=== PATIENT | male | born 1955 | race Caucasian/White ===

== ENCOUNTER 2017-08-09 07:00 | Emergency (ER) | payer OTHER ==
[~2017-08-09] VITALS: Ht 170.2 cm; Wt 90.7 kg
[2017-08-09 07:04] VITALS: BP 141/87
--- NOTE | 2017-08-09 07:38 | NUR ---
patient is homeless and requests refill of ventolin INH medication and c/o SOB. he appears agitated and states he has anxeity. his breath sounds are diminished throughout. put on O2 via NC at 2lpm. pursed-lip breathing encouraged. MD notified. continue to monitor.
[2017-08-09 08:10] VITALS: BP 149/96
--- NOTE | 2017-08-09 08:11 | NUR ---
Patient discharged with decreased SOB. Able to maintain adequate ventilation without oxygen assistance. Written and verbal after care instructions given and explained. Patient alert, oriented and verbalized understanding of instructions. Wheel Chair Assisted self to car. All questions addressed prior to discharge. ID band removed. Patient advised to follow up with PMD. Rx of ALBUTEROL, PREDNISONE, AND FLUOXETINE given. Patient educated on indication of medication including possible reaction and side effects. Opportunity to ask questions provided and answered.
== END 2017-08-09 08:11 | disposition home or self-care (01) ==
LOC: MED 07:00
DX: Z76.0 Encounter for issue of repeat prescription (principal); J44.9 Chronic obstructive pulmonary disease, unspecified; E11.9 Type 2 diabetes mellitus without complications; I10 Essential (primary) hypertension; Z88.1 Allergy status to other antibiotic agents; Z88.8 Allergy status to other drugs, medicaments and biological substances; Z87.891 Personal history of nicotine dependence
CPT/HCPCS: 99283

== ENCOUNTER 2017-11-09 01:53 | Inpatient (IN) | payer OTHER ==
[~2017-11-09] VITALS: Ht 167.6 cm; Wt 69.9 kg
[2017-11-09 02:01] VITALS: BP 110/45
--- NOTE | 2017-11-09 02:01 | NUR ---
62Y/M BIBA FROM STREET C/O OF PENIS SWELLING AND PAIN, NO TRAUMA. PATIENT STATES PAIN OF 10/10 AT THIS TIME; PATIENT POSITIONED FOR COMFORT; HOB ELEVATED; BEDRAILS UP X2; BED DOWN. ER MD MADE AWARE OF PT STATUS.
[2017-11-09] MEDS ORDERED: NACL 0.9% 1,000 ML IV ONE (02:05)
--- NOTE | 2017-11-09 02:14 | NUR ---
X-RAY AT BEDSIDE
--- NOTE | 2017-11-09 02:20 | NUR ---
PT REFUSE IV INSERTION AND IV MEDS
--- NOTE | 2017-11-09 03:11 | NUR ---
Note jose alberto in EDM - 11/09/17 at 0317 by RON Patient discharged with v/s stable. Written and verbal after care instructions given and explained. Patient alert, oriented and verbalized understanding of instructions. Ambulatory with steady gait. All questions addressed prior to discharge. ID band removed. Patient advised to follow up with PMD. Rx of OMEPRAZOLE given. Patient educated on indication of medication including possible reaction and side effects. Opportunity to ask questions provided and answered.
[2017-11-09 03:13] LABS: BASOPHILS # (AUTO) 0.1 K/uL (0.00-0.22); BASOPHILS % (AUTO) 1.9 % (0.0-2.0); EOSINOPHILS # (AUTO) 0.1 K/uL (0-0.4); EOSINOPHILS % (AUTO) 1.2 % (0.0-4.0); HEMATOCRIT 32.7 % (36-52); HEMOGLOBIN 10.3 g/dL (12.0-18.0); LYMPHOCYTES # (AUTO) 2.4 K/uL (2.0-11.5); LYMPHOCYTES % (AUTO) 34.4 % (20.5-51.1); MEAN CORPUSCULAR HEMOGLOBIN 29 pg (27-31); MEAN CORPUSCULAR HGB CONC 32 g/dL (33-37); MEAN CORPUSCULAR VOLUME 92.6 fL (80-94); MONOCYTES # (AUTO) 0.4 K/uL (0.8-1.0); MONOCYTES % (AUTO) 5.5 % (1.7-9.3); NEUTROPHILS # (AUTO) 4.1 K/uL (1.8-7.7); PLATELET COUNT (AUTO) 282 K/uL (140-450); RED BLOOD CELL COUNT(AUTO) 3.53 MIL/uL (4.20-6.10); WHITE BLOOD COUNT (AUTO) 7.1 K/uL (4.8-10.8)
[2017-11-09] MEDS ORDERED: KETAMINE 500 MG/5 ML VIAL IM ONE (03:20)
[2017-11-09] MEDS ORDERED: MIDAZOLAM 2 MG/2 ML VIAL IM ONE (03:20)
[2017-11-09 03:26] LABS: ANION GAP 14.2 (8-16); CARBON DIOXIDE 27.8 mmol/L (21-32); CREATININE 1.4 mg/dL (0.7-1.3)
[2017-11-09 03:29] LABS: PROTHROMBIN TIME 17.1 secs (10.8-13.4)
[2017-11-09 03:36] LABS: ACETAMINOPHEN < 0.5 ug/ml (10-30); SALICYLATE < 2.8 mg/dL (2.8-20.0)
[2017-11-09 03:40] LABS: ALBUMIN 2.7 g/dL (3.4-5.0); TOTAL BILIRUBIN 0.8 mg/dL (0.0-1.0)
[2017-11-09 03:43] LABS: APPEARANCE,URINE CLEAR (CLEAR); BILIRUBIN,URINE NEGATIVE (NEGATIVE); BLOOD, URINE NEGATIVE (NEGATIVE); COLOR,URINE YELLOW (YELLOW); LEUKOCYTE ESTERASE ,URINE NEGATIVE (NEGATIVE); NITRITE, URINE NEGATIVE (NEGATIVE); UGLUCOSE NEGATIVE (NEGATIVE)
[2017-11-09 03:51] LABS: BARBITURATE, URINE NEG. ng/ml (NEG <=200); BENZODIAZEPINE, URINE NEG. ng/mL (NEG <=200); CANNABINOID, URINE NEG. ng/mL (NEG <=50); COCAINE, URINE POS. ng/mL (NEG <=300); OPIATE, URINE POS. ng/mL (NEG <=2000); PHENCYCLIDINE SCREEN,URINE NEG. ng/mL (NEG <=25)
[2017-11-09 03:52] LABS: RBC,URINE 0-5 (RARE) /HPF (0-5)
[2017-11-09 03:53] LABS: HYALINE CASTS, URINE 0-5 /LPF (None Seen)
[2017-11-09] MEDS ORDERED: FUROSEMIDE 40 MG TAB PO ONE (04:05)
--- NOTE | 2017-11-09 04:39 | NUR ---
Patient appears to be resting comfortably in bed. Respirations even and unlabored.
[2017-11-09] MEDS ORDERED: ACETAMINOPHEN 325 MG TAB PO PRN (05:40)
[2017-11-09] MEDS ORDERED: ONDANSETRON 4 MG/2 ML VIAL IVP PRN (05:40)
--- NOTE | 2017-11-09 07:05 | NUR ---
Patient will be admitted to care of DR. Briggs. Admited to ICU. Will go to room 1. Belongings list completed. Report to TOM PRETTY.
--- NOTE | 2017-11-09 07:20 | NUR ---
ADMITTED PT FROM ER BY AIYNAA, KRISTEN AWAKE, ALERT. MILD DISTRESS, OBESE. ON O2 NC 2L/MIN, NO S/S OF RESPIRATORY DISTRESS NOTED. PT ABD SOFT, ABLE TO MOVE HIS EXTREMITIES . 3+ PRETIBIAL PITTING EDEMA TO LOWER EXTREMITIES, SKIN IS WEEPING SEROSANGUINEOUS FLUIDS RESULT OF EDEMA.MARS CATH IN PLACE WITH CLEAR YELLOW URINE. PT STATED NO DRUG ABUSE BUT URINE TEST SHOWS URINE OPIATES AND UR AMPHETAMINES POSITIVE. HOB ELEVATED WITH 30 DEGREES WITH LOW BED POSITION, CALL LIGHT IN REACH, WILL CONTINUE TO MONITOR.
[2017-11-09 08:00] VITALS: BP 113/79
[2017-11-09 08:20] LABS: CHOL/HDL RATIO 8.1 (1-4.5); FREE T4 (FREE THYROXINE) 1.25 ng/dL (0.76-1.46); MAGNESIUM 2.1 mg/dL (1.8-2.4); THYROID STIMULATING HORMONE 5.25 uIU/mL (0.34-3.74)
--- NOTE | 2017-11-09 09:48 | NUR ---
PILE DRIVING SETTER AT BEDSIDE
[2017-11-09] MEDS: DOCUSATE SODIUM 100 MG GELCAP PO SCH ×2 (10:05→20:23)
--- NOTE | 2017-11-09 10:06 | NUR ---
PT C/O LEG PAIN AT THE SCALE OF 6/10, NORCO GIVEN.
[2017-11-09] MEDS: HYDROcodone/APAP 7.5/325 MG 1 TAB PO PRN ×3 (10:07→23:39)
[2017-11-09] MEDS ORDERED: PROBIOTIC SCREEN 1 EA MISC MC PRN (11:00)
--- NOTE | 2017-11-09 11:22 | NUR ---
PICC LINE NURSE CALLED IN, UPDATED PT'S CONDITION, PER PICC LINE NURSE, SHE WILL BE HERE BY 3PM
[2017-11-09] MEDS ORDERED: CHLORHEXADINE GLUC 2% CLOTH TP SCH ×2 (11:55→16:00)
[2017-11-09] MEDS ORDERED: MUPIROCIN 2% OINT 22 GM TUBE TP SCH ×2 (11:55→16:00)
[2017-11-09 12:00] VITALS: BP 108/80
--- NOTE | 2017-11-09 12:09 | NUR ---
PT SLEEPING AT THIS TIME. NO S/S OF RESPIRATORY DISTRESS NOTED.
--- NOTE | 2017-11-09 14:45 | NUR ---
PICC LINE NURSE PRESENT TO BEDSIDE, LAB REPORT SHOWED TO PICC LINE NURSE.
--- NOTE | 2017-11-09 15:25 | NUR ---
PICC LINE INSERTION DONE, X-RAY AT BEDSIDE.
[2017-11-09 16:00] VITALS: BP 89/50
--- NOTE | 2017-11-09 16:00 | NUR ---
BED BATH GIVEN, LINEN CHANGED, GOWN CHANGED. PT RESTING IN BED AND WATCHING TV AT THIS TIME.
[2017-11-09] MEDS ORDERED: DEXTROSE 50% 50 ML SYR IVP PRN (16:50)
--- NOTE | 2017-11-09 17:30 | NUR ---
DINNER TRAY SERVED. PT ATE MAJORITY OF THE FOOD.
[2017-11-09] MEDS: CLINDAMYCIN 600 MG in DEXTROSE 5% 50 ML IV SCH ×2 (17:31→23:10)
[2017-11-09] MEDS: NACL 0.9% 1,000 ML IV SCH (17:31)
--- NOTE | 2017-11-09 19:30 | NUR ---
US AT BED SIDE AT THIS TIME.
--- NOTE | 2017-11-09 19:45 | NUR ---
PT ASLEEP AND AROUSABLE WITH TACTILE STIMULI, BUT LETHARGIC. PERRL. BILATERAL LUNGS SOUND CLEAR. RR EVEN AND UNLABORED. BOWEL SOUND ACTIVE. PICC LINE WITH DOUBLE LUMEN TO RIGHT UPPER ARM NOTED. PATENT AND ASYMPTOMATIC. GENERALIZED EDEMA NOTED TO UPPER AND LOWER EXTREMITIES, PENIS, AND SCROTUM. BILATERAL LOWER EXTREMITIES WITH SHINY AND RED IN COLOR OOZING FLUID FROM SKIN. DELAYED CAP REFILLS. AFEBRILE. NO S/SX OF PAIN. SINUS TACHYCARDIA ON CONTINUOUS BAKER OPERATOR AUTOMATIC. CALL LIGHT IN REACH. BED KEPT TO THE LOWEST POSITION. HOB ELEVATED TO 30 DEGREES. WILL CONTINUE TO MONITOR.
[2017-11-09 20:00] VITALS: BP 92/53
[2017-11-09] MEDS: FUROSEMIDE 40 MG/4 ML VIAL IVP SCH (20:20)
[2017-11-09] MEDS: BLOOD GLUCOSE MONITORING 1 DEV DEV FS SCH (20:22)
--- NOTE | 2017-11-09 20:24 | NUR ---
SCHEDULED MEDS ADMINISTERED ORDERED. PT IN DEEP SLEEP BUT ABLE TO BE AWAKE AND TOLERATED PO MED WELL. WILL CONTINUE TO MONITOR.
--- NOTE | 2017-11-09 20:41 | NUR ---
PT WAS NOT ABLE TO FIT IN THE CT SCAN MACHINE. DR. SAN MADE AWARE.
[2017-11-09] MEDS: INSULIN LISPRO SLIDING SCALE 100 UNITS/ML VIAL SUBQ PRN (21:15)
--- NOTE | 2017-11-09 23:41 | NUR ---
PT C/O BURNING PAIN TO BILATERAL LOWER EXTREMITIES. ASSISTED WITH REPOSITIONED. NOTED FLUID OOZING OUT OF THE SKIN AND RED AND EDEMATOUS TO THE LOWER EXTREMITIES. PAIN MED ADMINISTERED ORDERED. WILL CONTINUE TO MONITOR.
[2017-11-10] VITALS: BP 88/69
--- NOTE | 2017-11-10 01:31 | NUR ---
DR. SAN MADE AWARE OF PT C/O PAIN TO THE LOWER EXTREMITIES DESPITE NORCO ADMINISTRATION. WILL FOLLOW UP WITH NEW ORDER.
[2017-11-10] MEDS ORDERED: MORPHINE SULFATE 2 MG/ML SYR IVP SCH (01:45)
[2017-11-10] MEDS: NACL 0.9% 1,000 ML IV SCH (02:07)
--- NOTE | 2017-11-10 02:26 | NUR ---
CHANGED THE LINEN DUE TO FLUID OOZING OUT OF THE LOWER EXTREMITIES. ELEVATED BOTH LEGS WITH PILLOWS AND REPOSITIONED. PT STATES IT IS HELPING TO REDUCE HIS PAIN TO THE LOWER EXTREMITIES. WILL CONTINUE TO MONITOR.
[2017-11-10 04:00] VITALS: BP 94/63
[2017-11-10] MEDS: HYDROcodone/APAP 7.5/325 MG 1 TAB PO PRN ×2 (04:10→08:21)
--- NOTE | 2017-11-10 04:11 | NUR ---
PT C/O PAIN TO BLE 6/10 BURNING PAIN. BLE CONTINUED TO OOZE FLUID FROM SKIN, ERYTHEMA, EDEMATOUS. REPOSITIONED, DEEMED THE LIGHT, ENCOURAGED RELAXATION TECHNIQUES. NON PHARMACOLOGICAL INTERVENTIONS NOT EFFECTIVE. ADMINISTERED NORCO ORDERED. ST ON CONTINUOS GAS DESULFURIZER. VS WITHOUT ACUTE DISTRESS. AFEBRILE. WILL CONTINUE TO MONITOR.
--- NOTE | 2017-11-10 04:45 | NUR ---
LABS DRAWN ORDERED.
[2017-11-10] MEDS: BLOOD GLUCOSE MONITORING 1 DEV DEV FS SCH ×4 (05:21→20:45)
[2017-11-10] MEDS: CLINDAMYCIN 600 MG in DEXTROSE 5% 50 ML IV SCH ×3 (05:46→17:02)
--- NOTE | 2017-11-10 05:47 | NUR ---
ASSISTED WITH BED BATH, LINEN CHANGE, REPOSITIONING, MARS CATHETER CARE. TOLERATED WELL. VS WITHOUT ACUTE DISTRESS. WILL CONTINUE TO MONITOR.
--- NOTE | 2017-11-10 07:22 | NUR ---
REPORT GIVEN TO MORNING RN FOR CONTINUITY OF CARE. PT VS WITHOUT ACUTE DISTRESS. CALL LIGHT IN REACH. HOB ELEVATED TO 30 DEGREES. BED KEPT TO THE LOWEST.
--- NOTE | 2017-11-10 07:30 | NUR ---
REPORT RECEIVED FROM NIGHT NURSE. PT IS ASLEEP, EASILY AROUSABLE TO NAME. FOLLOWS COMMANDS AND ABLE TO MAKE NEEDS KNOWN. PT IS AFEBRILE. SINUS TACHYCARDIA ON MONITOR. ON O2 AT 2 LPM/NC. BILATERAL LUNGS SOUND CLEAR. BREATHING EVEN AND UNLABORED. PICC LINE WITH DOUBLE LUMEN TO RIGHT UPPER ARM ASYMPTOMATIC, PATENT AND INTACT, RECEIVING NORMAL SALINE AT 50 ML/HR. BOWEL SOUNDS ACTIVE. GENERALIZED EDEMA NOTED TO UPPER AND LOWER EXTREMITIES, PENIS AND SCROTUM. BLLE SKIN RED AND SHINY, AND FLUID OOZING FROM SKIN. SKIN IS WARM TO TOUCH. BED IN LOWEST POSITION AND CALL LIGHT WITHIN REACH. WILL CONTINUE TO MONITOR.
[2017-11-10 07:34] LABS: ANION GAP 8.2 (8-16); CARBON DIOXIDE 32.4 mmol/L (21-32); CREATININE 1.3 mg/dL (0.7-1.3); POTASSIUM 4.6 mmol/L (3.5-5.1)
[2017-11-10 07:54] LABS: MAGNESIUM 1.8 mg/dL (1.8-2.4); PHOSPHORUS 4.1 mg/dL (2.5-4.9)
[2017-11-10 07:58] LABS: HEMATOCRIT 27.8 % (36-52); HEMOGLOBIN 8.6 g/dL (12.0-18.0); MEAN CORPUSCULAR HEMOGLOBIN 29 pg (27-31); MEAN CORPUSCULAR HGB CONC 31 g/dL (33-37); MEAN CORPUSCULAR VOLUME 92.8 fL (80-94); PLATELET COUNT (AUTO) 214 K/uL (140-450); RED BLOOD CELL COUNT(AUTO) 2.99 MIL/uL (4.20-6.10); RED CELL DISTRIBUTION WIDTH 17.1 % (11.6-13.7); WHITE BLOOD COUNT (AUTO) 4.5 K/uL (4.8-10.8)
[2017-11-10 08:00] VITALS: BP 85/57
[2017-11-10] MEDS: LACTOBACILLUS RHAMNOSUS GG 1 EACH CAP PO SCH (08:21)
[2017-11-10] MEDS: DOCUSATE SODIUM 100 MG GELCAP PO SCH ×2 (08:21→20:45)
[2017-11-10] MEDS: ATORVASTATIN 20 MG TAB PO SCH (08:21)
[2017-11-10] MEDS: FUROSEMIDE 40 MG/4 ML VIAL IVP SCH (08:21)
[2017-11-10] MEDS: LISINOPRIL 10 MG TAB PO SCH (08:22)
--- NOTE | 2017-11-10 08:55 | NUR ---
MEDICATIONS ADMINISTERED. PT TOLERATED WELL.
[2017-11-10 09:07] LABS: BASOPHILS # (AUTO) 0.1 K/uL (0.00-0.22); BASOPHILS % (AUTO) 1.8 % (0.0-2.0); EOSINOPHILS # (AUTO) 0.1 K/uL (0-0.4); EOSINOPHILS % (AUTO) 1.9 % (0.0-4.0); LYMPHOCYTES # (AUTO) 1.2 K/uL (2.0-11.5); LYMPHOCYTES % (AUTO) 28.1 % (20.5-51.1); MONOCYTES # (AUTO) 0.4 K/uL (0.8-1.0); MONOCYTES % (AUTO) 8.1 % (1.7-9.3); NEUTROPHILS # (AUTO) 2.5 K/uL (1.8-7.7); NEUTROPHILS % (AUTO) 60.1 % (42.2-75.2)
--- NOTE | 2017-11-10 09:14 | NUR ---
DR. VASQUEZ AND RESIDENT GROUP IN TO SEE PT. WILL FOLLOW UP ON ORDERS.
[2017-11-10] MEDS: KETOROLAC 30 MG/ML VIAL IVP PRN ×3 (10:09→21:56)
--- NOTE | 2017-11-10 10:18 | NUR ---
PATIENT HAS BEEN SCREENED AND CATEGORIZED HIGH NUTRITION RISK. PATIENT WILL BE SEEN WITHIN 1-2 DAYS OF ADMISSION. 11/09/17 - 11/10/[address]
[2017-11-10] MEDS ORDERED: FERRIC GLUCONATE 125 MG in NACL 0.9% 100 ML IV SCH (11:30)
--- NOTE | 2017-11-10 11:52 | NUR ---
FAXED INITIAL REVIEW TO [facility] [phone] PHONE [phone] X [phone] ARIANNE
[2017-11-10 12:00] VITALS: BP 87/56
--- NOTE | 2017-11-10 12:05 | NUR ---
PT IS SLEEPING COMFORTABLY AT THIS TIME. LUNCH PROVIDED AND NEEDS WELL ATTENDED. NO S/SX OF ACUTE DISTRESS NOTED. ALL SAFETY PRECAUTIONS IN PLACE.
[2017-11-10] MEDS: INSULIN LISPRO SLIDING SCALE 100 UNITS/ML VIAL SUBQ PRN (12:15)
--- NOTE | 2017-11-10 13:45 | NUR ---
PT'S BLOOD PRESSURE 70/54. DR. MURILLO MADE AWARE AND PT SEEN AND EXAMINED BY DR. MURILLO AT BEDSIDE. WILL FOLLOW UP ON ORDERS.
[2017-11-10] MEDS ORDERED: NACL 0.9% 500 ML IV SCH (14:10)
[2017-11-10] MEDS ORDERED: ALBUMIN HUMAN 5 % 250 ML IV SCH (14:16)
--- NOTE | 2017-11-10 14:56 | NUR ---
11/10/17 RD INITIAL ASSESSMENT COMPLETED PLEASE REFER TO NUTRITION ASSESSMENT UNDER CARE ACTIVITY FOR ESTIMATED NUTRITIONAL NEEDS. 1. CONTINUE CARDIAC DIET TOLERATED 2. RECOMMEND ADDING CCHO 60 GM TO CURRENT DIET ORDER -PATIENT MEETING 100% OF ESTIMATED KCAL AND PROTEIN NEEDS WITH CURRENT INTAKE 3. RD TO FOLLOW UP 5-7 DAYS; LOW RISK NATE [address]ANSON RD
[2017-11-10 16:00] VITALS: BP 94/59
--- NOTE | 2017-11-10 16:00 | NUR ---
VITAL SIGNS STABLE. NO ACUTE DISTRESS NOTED. PT C/O PAIN TO BLLE. WILL MEDICATE AND CONTINUE TO MONITOR.
--- NOTE | 2017-11-10 17:33 | NUR ---
NO CHANGE OF CONDITION AT THIS TIME. CHANGED LINENS AND CLEANED PT. PT C/O DIZZINESS AFTER TURNING AND REPOSITIONING. NO S/SX OF ACUTE DISTRESS NOTED. WILL CONTINUE TO MONITOR.
--- NOTE | 2017-11-10 18:40 | NUR ---
RECEIVED PATIENT FROM ICU NURSE. PATIENT IS AWAKE AT THIS TIME. PATIENT ALERT AND ORIENTED X4. PATIENT HAS SWELLING ON BILATERAL LOWER EXTREMITIES. PATIENT'S LEGS ARE WEEPING AND COVERED WITH KERLIX. BANDAGES ARE NOT SATURATED. PUT PATIENT ON 3 LITERS O2 VIA NC BECAUSE HE COMPLAINS OF SHORTNESS OF BREATH. PATIENT'S VITAL SIGNS ARE WITHIN NORMAL LIMITS AT THIS TIME. PATIENT'S SATURATION AT 99%. PATIENT'S PENIS IS SWOLLEN AT THIS TIME. PATIENT HAS DOUBLE LUMEN CENTRAL LINE ON RIGHT ARM. PATIENT IS SALINE LOCKED BECAUSE OF RETENTION OF FLUID. WILL CONTINUE TO MONITOR PATIENT.
--- NOTE | 2017-11-10 18:40 | NUR ---
PT TRANSFERRED TO TELEMETRY ROOM 116. REPORT GIVEN TO SUKHWINDER BANKS AT BEDSIDE. NO ACUTE DISTRESS NOTED AT THIS TIME.
--- NOTE | 2017-11-10 19:22 | NUR ---
GAVE REPORT TO NIGHTSHIFT NURSE AT BEDSIDE. PATIENT IN STABLE CONDITION.
--- NOTE | 2017-11-10 19:30 | NUR ---
ASSUMED CARE, AWAKE, ALERT AND ORIENTED. NO COMPLAINS. CALL LIGHT WITHIN REACH.
--- NOTE | 2017-11-10 20:00 | NUR ---
VITAL SIGNS STABLE. NO COMPLAINS. AFEBRILE. CALL LIGHT WITHIN REACH. PLAN OF CARE DISCUSSED WITH PATIENT, VERBALIZED UNDERSTANDING WELL.
[2017-11-10 21:07] VITALS: BP 92/61
[2017-11-10] MEDS ORDERED: CLINDAMYCIN 600 MG/4 ML VIAL ONE (23:46)
[2017-11-11] MEDS: CLINDAMYCIN 600 MG in DEXTROSE 5% 50 ML IV SCH ×5 (00:03→23:02)
[2017-11-11] MEDS: HYDROcodone/APAP 5/325 MG 1 TAB TAB PO PRN ×3 (00:04→17:41)
[2017-11-11 00:19] VITALS: BP 94/64
--- NOTE | 2017-11-11 00:20 | NUR ---
VITAL SIGNS STABLE. NO COMPLAINS. AFEBRILE. NORCO GIVEN ORDERED. CALL LIGHT WITHIN REACH.
[2017-11-11] MEDS: KETOROLAC 30 MG/ML VIAL IVP PRN ×3 (04:35→20:22)
[2017-11-11 04:51] VITALS: BP 107/71
[2017-11-11] MEDS ORDERED: CLINDAMYCIN 600 MG/4 ML VIAL ONE (05:04)
--- NOTE | 2017-11-11 05:30 | NUR ---
PERICARE DONE. REPOSITIONED. NO COMPLAINS. CALL LIGHT WITHIN REACH.
[2017-11-11] MEDS: BLOOD GLUCOSE MONITORING 1 DEV DEV FS SCH ×4 (05:44→20:25)
--- NOTE | 2017-11-11 07:08 | NUR ---
ENDORSED CARE AT BEDSIDE WITH RODRIGUEZ RN, PATIENT IN STABLE CONDITION.
--- NOTE | 2017-11-11 07:10 | NUR ---
RECEIVED REPORT FROM DIRECTOR OF OPERATIONS SUPPORT RN. PATIENT HAS AAOX4, HAS NASAL CANNULA AT 2 LPM. NO SIGNS AND SYMPTOMS OF RESPIRATORY DISTRESS NOTED AT THIS TIME. PATIENT HAS PICC LINE TO RIGHT UA, LINES HAVE BEEN FLUSHED AND ARE PATENT. PATIENT IS ON SALINE LOCK. DISCUSSED PLAN OF CARE WITH PATIENT AND HE VERBALIZED UNDERSTANDING. BED IN LOWEST POSITION, SIDE RAILS UP X2, CALL LIGHT PLACED WITHIN REACH. WILL CONTINUE TO MONITOR.
[2017-11-11 07:53] LABS: FOLIC ACID 12.5 ng/mL (>3.0)
[2017-11-11 08:00] VITALS: BP 93/67
[2017-11-11 08:12] LABS: EOSINOPHILS # (AUTO) 0.1 K/uL (0-0.4); HEMATOCRIT 25.7 % (36-52); HEMOGLOBIN 8.3 g/dL (12.0-18.0); LYMPHOCYTES # (AUTO) 0.7 K/uL (2.0-11.5); MEAN CORPUSCULAR HEMOGLOBIN 30 pg (27-31); MEAN CORPUSCULAR HGB CONC 33 g/dL (33-37); MEAN CORPUSCULAR VOLUME 91.6 fL (80-94); MONOCYTES # (AUTO) 0.5 K/uL (0.8-1.0); NEUTROPHILS # (AUTO) 3.5 K/uL (1.8-7.7); PLATELET COUNT (AUTO) 189 K/uL (140-450); RED CELL DISTRIBUTION WIDTH 17.3 % (11.6-13.7); WHITE BLOOD COUNT (AUTO) 4.7 K/uL (4.8-10.8)
[2017-11-11 08:18] LABS: BASOPHILS % (AUTO) 0.5 % (0.0-2.0); LYMPHOCYTES % (AUTO) 13.9 % (20.5-51.1); NEUTROPHILS % (AUTO) 73.6 % (42.2-75.2)
[2017-11-11 08:33] LABS: ANION GAP 9.5 (8-16); CARBON DIOXIDE 30.2 mmol/L (21-32); CREATININE 1.5 mg/dL (0.7-1.3); POTASSIUM 4.7 mmol/L (3.5-5.1)
[2017-11-11] MEDS: LISINOPRIL 10 MG TAB PO SCH (09:00)
[2017-11-11] MEDS ORDERED: FUROSEMIDE 20 MG/2 ML VIAL IVP SCH ×4 (09:00→21:11)
[2017-11-11] MEDS: DOCUSATE SODIUM 100 MG GELCAP PO SCH ×2 (09:05→20:23)
[2017-11-11] MEDS: ATORVASTATIN 20 MG TAB PO SCH (09:05)
[2017-11-11] MEDS: LACTOBACILLUS RHAMNOSUS GG 1 EACH CAP PO SCH (09:05)
[2017-11-11] MEDS: FUROSEMIDE 20 MG/2 ML VIAL IVP SCH ×4 (09:06→21:00)
[2017-11-11 10:20] LABS: MAGNESIUM 1.9 mg/dL (1.8-2.4); PHOSPHORUS 3.3 mg/dL (2.5-4.9)
--- NOTE | 2017-11-11 11:05 | NUR ---
FAXED CONCURRENT REVIEW TO [facility] [phone] PHONE [phone] X [phone] ARIANNE
--- NOTE | 2017-11-11 11:15 | NUR ---
PATIENTS BLOOD PRESSURE IS LOW, 81/50, MADE DR AMAYA AWARE. PATIENT IS ASYMPTOMATIC. WILL CONTINUE TO MONITOR.
--- NOTE | 2017-11-11 11:20 | NUR ---
PATIENT TAKEN OFF NASAL CANNULA AT THIS TIME.
--- NOTE | 2017-11-11 11:40 | NUR ---
PATIENTS 02 SATURATION IS 96% ON ROOM AIR. WILL CONTINUE TO MONITOR.
[2017-11-11 12:00] VITALS: BP 81/50
--- NOTE | 2017-11-11 13:04 | NUR ---
WOUND CARE EVALUATION NOTES: REASON FOR EVALUATION: MULTIPLE WOUNDS COMPLETE SKIN ASSESSMENT DONE ON THIS 62Y/O MALE PATIENT TO [facility], WITH INITIAL DIAGNOSIS OF PENIL SWELLING PAST MEDICAL HISTORY INCLUDE COPD, CHF, DIABETES, HYPERTENSION. ALL ABOVE INFORMATION WAS OBTAINED FROM THE ADMISSION H&P. LABS ARE WBC 4.7, H/H 8.3/25.5. PATIENT IS AWAKE, ALERT, AND ABLE TO FOLLOW COMMANDS. SKIN WARM TO TOUCH, NO PENILE SWELLING NOTICE, SCROTUM SKIN INTACT. BLE ERYTHREDEMA THICKENED TOENAILS, HAIR GROWTH AND BILATERAL PEDAL PULSES PRESENT.MARS CATHETER PATENT AND INTACT TO AREN COLORED URINE IN SMALL AMOUNT. PLAN OF CARE DISCUSSED WITH PRIMARY RN AND PT. PT VERBALIZES UNDERSTAND. INTEGUMENTARY: -TATTOOS TO RIGHT SHOULDER -FUNGAL DERMATITIS TO SACROCOCCYX, RIGHT AND LEFT MEDIAL AND POSTERIOR UPPER THIGHS -RIGHT DORSAL FOOT OLD HEALED SCAR -RIGHT LOWER POSTERIOR LEG VASCULAR ULCER 3X3X0.1 CM ERYTHEMA, WOUND BED RED AND MOIST, NO ODOR, JANET-WOUND SKIN INTACT -RIGHT LOWER LATERAL LEG VASCULAR ULCER 2.8X3X 0.1 CM ERYTHEMA, WOUND BED RED AND MOIST, NO ODOR, JANET-WOUND SKIN INTACT -LEFT KNEE OLD HEALED SCAR -LEFT LE BELOW KNEE 3 OPEN VASCULAR ULCERS WITH LARGEST MEASURE 1.5X2X0.1 CM, WOUND BED IS PINK,CLEAN, MOIST, NO ODOR, JANET WOUND SKIN INTACT. RECOMMENDATIONS: -APPLY ANTIFUNGAL CREAM TO SACROCOCCYX, R/L MEDIAL AND POSTERIOR UPPER THIGHS -CLEANSE RIGHT AND LEFT LE WOUND WITH NS, PAT DRY, APPLY XEROFORM DRESSING, COVER WITH DRY DRESSING AND WRAP WITH KERLIX ROLLS [id number] AND PRN IF SOILING -OFFLOAD BILATERAL HEELS BY PLACING PILLOWS UNDER CALVES AT ALL TIMES, UNLESS OTHERWISE CONTRAINDICATED -AUTOMATIC PRESSER CONSULT AND DEBRIDEMENT OF RIGHT HEEL -PRESSURE REDISTRIBUTION SURFACE THERAPY -VENOUS AND ARTERIAL DOPPLER U/S PENDING -KEEP SKIN CLEAN AND DRY AT ALL TIMES. RECOMMENDATIONS DISCUSSED WITH PRIMARY RN WILL FOLLOW UP PATIENT Q 7 -10 DAYS AND PRN. PLEASE CONTACT WOUND CARE NURSE FOR ANY CONCERNS AND CHANGES IN WOUND CONDITION Addendum: 11/11/17 at 1336 by Mary Spain RN (Grace) ERROR ENTRY: NO NEED FOR PODIATRY CONSULT AND DEBRIDEMENT TO HEEL
[2017-11-11 16:00] VITALS: BP 106/61
[2017-11-11] MEDS: GABAPENTIN 300 MG CAP PO SCH (17:37)
--- NOTE | 2017-11-11 19:20 | NUR ---
ENDORSED PATIENT TO ARMORED MACHINE OPERATOR RN FOR CONTINUITY OF CARE. PATIENT IN STABLE CONDITION.
[2017-11-11 20:00] VITALS: BP 97/64
[2017-11-11] MEDS: CLOTRIMAZOLE 1% 30 GM CRM TUBE TP SCH (20:23)
--- NOTE | 2017-11-11 20:33 | NUR ---
BP 97/64, HELD LASIX FOR TONIGHT, DR. MORATAYA IS AWARE. PATIENT STATED ABDOMINAL PAIN 6/10, PAIN MEDICATION GIVEN ORDERED. DUE MEDICATION GIVEN, PATIENT TOLERATED WELL. NO S/S OF DISTRESS NOTED, RESPIRATION EVEN AND UNLABORED, SAFETY MEASURE ENSURED, WILL CONTINUE TO MONITOR.
--- NOTE | 2017-11-11 21:16 | NUR ---
DR. MORATAYA IS AWARE THAT NORMA IS HELD FOR [employer].
[2017-11-11] MEDS ORDERED: ZOLPIDEM 5 MG TAB ONE (22:17)
[2017-11-11] MEDS ORDERED: ZOLPIDEM 5 MG TAB PO ONE (22:50)
--- NOTE | 2017-11-11 23:05 | NUR ---
PATIENT ASKED FOR SLEEPING PILL, MADE DR. MORATAYA AWARE. ORDER RECEIVED AND CARRIED OUT, PATIENT RESTING IN BED, NO S/S OF DISTRESS, CALL LIGHT WITHIN REACH, SAFETY MEASURE ENSURED, WILL CONTINUE TO MONITOR.
[2017-11-12] VITALS: BP 99/72
[2017-11-12] MEDS: HYDROcodone/APAP 5/325 MG 1 TAB TAB PO PRN ×2 (02:18→09:37)
--- NOTE | 2017-11-12 02:20 | NUR ---
PAIN 8/10, PAIN MEDICATION GIVEN ORDERED. WILL CONTINUE TO MONITOR.
[2017-11-12] MEDS: KETOROLAC 30 MG/ML VIAL IVP PRN (03:58)
[2017-11-12 04:05] VITALS: BP 111/71
--- NOTE | 2017-11-12 04:05 | NUR ---
VITAL SIGNS STABLE, NO S/S OF DISTRESS NOTED, RESPIRATION EVEN AND UNLABORED, CALL LIGHT WITHIN REACH, SAFETY MEASURE ENSURED, WILL CONTINUE TO MONITOR.
[2017-11-12] MEDS: CLINDAMYCIN 600 MG in DEXTROSE 5% 50 ML IV SCH (05:46)
--- NOTE | 2017-11-12 05:48 | NUR ---
DUE MEDICATION GIVEN, PATIENT TOLERATED WELL. NO S/S OF DISTRESS NOTED, WILL CONTINUE TO MONITOR.
[2017-11-12 06:20] LABS: FOLIC ACID 10.8 ng/mL (>3.0)
[2017-11-12] MEDS: BLOOD GLUCOSE MONITORING 1 DEV DEV FS SCH (06:46)
--- NOTE | 2017-11-12 07:36 | NUR ---
ENDORSED PLAN OF CARE TO DAY SHIFT RN, PATIENT RESTING IN BED, IN STABLE CONDITION, NO S/S OF DISTRESS NOTED.
--- NOTE | 2017-11-12 07:37 | NUR ---
RECEIVED REPORT FROM CHROME TANNER RN. PATIENT HAS AAOX4, ON ROOM AIR. NO SIGNS AND SYMPTOMS OF RESPIRATORY DISTRESS NOTED AT THIS TIME. PATIENT HAS PICC LINE TO RIGHT UA, LINES HAVE BEEN FLUSHED AND ARE PATENT. PATIENT IS ON SALINE LOCK. DISCUSSED PLAN OF CARE WITH PATIENT AND HE VERBALIZED UNDERSTANDING. BEDSIDE COMMODE AVAILABLE. BED IN LOWEST POSITION, SIDE RAILS UP X2, CALL LIGHT PLACED WITHIN REACH. WILL CONTINUE TO MONITOR.
[2017-11-12 08:00] VITALS: BP 103/79
[2017-11-12] MEDS ORDERED: FERROUS GLUCONATE 324 MG TAB PO SCH (08:00)
[2017-11-12 08:24] LABS: BASOPHILS % (AUTO) 0.8 % (0.0-2.0); EOSINOPHILS # (AUTO) 0.1 K/uL (0-0.4); EOSINOPHILS % (AUTO) 1.9 % (0.0-4.0); HEMATOCRIT 26.8 % (36-52); HEMOGLOBIN 8.6 g/dL (12.0-18.0); LYMPHOCYTES # (AUTO) 0.7 K/uL (2.0-11.5); LYMPHOCYTES % (AUTO) 14.9 % (20.5-51.1); MEAN CORPUSCULAR HEMOGLOBIN 29 pg (27-31); MEAN CORPUSCULAR HGB CONC 32 g/dL (33-37); MEAN CORPUSCULAR VOLUME 91.1 fL (80-94); MONOCYTES # (AUTO) 0.4 K/uL (0.8-1.0); MONOCYTES % (AUTO) 9.3 % (1.7-9.3); NEUTROPHILS # (AUTO) 3.5 K/uL (1.8-7.7); NEUTROPHILS % (AUTO) 73.1 % (42.2-75.2); PLATELET COUNT (AUTO) 201 K/uL (140-450); RED BLOOD CELL COUNT(AUTO) 2.94 MIL/uL (4.20-6.10); RED CELL DISTRIBUTION WIDTH 17.3 % (11.6-13.7); WHITE BLOOD COUNT (AUTO) 4.8 K/uL (4.8-10.8)
[2017-11-12 08:30] LABS: ANION GAP 8.1 (8-16); CARBON DIOXIDE 31.4 mmol/L (21-32); CREATININE 1.5 mg/dL (0.7-1.3); POTASSIUM 4.5 mmol/L (3.5-5.1)
[2017-11-12 08:34] LABS: MAGNESIUM 1.8 mg/dL (1.8-2.4); PHOSPHORUS 3.2 mg/dL (2.5-4.9)
[2017-11-12] MEDS: DOCUSATE SODIUM 100 MG GELCAP PO SCH (09:10)
[2017-11-12] MEDS: GABAPENTIN 300 MG CAP PO SCH (09:10)
[2017-11-12] MEDS: LACTOBACILLUS RHAMNOSUS GG 1 EACH CAP PO SCH (09:10)
[2017-11-12] MEDS: ATORVASTATIN 20 MG TAB PO SCH (09:10)
[2017-11-12] MEDS: CLOTRIMAZOLE 1% 30 GM CRM TUBE TP SCH (09:12)
--- NOTE | 2017-11-12 10:11 | NUR ---
PATIENT STATED THAT HE WANTS TO LEAVE AMA. MADE DR WALKER AWARE.
--- NOTE | 2017-11-12 10:15 | NUR ---
IN THE PATIENTS ROOM WITH DR AMAYA. HE INFORMED PATIENT OF THE RISKS INVOLVED IN LEAVING AMA. PATIENT VERBALIZED UNDERSTANDING AND STILL WANTS TO LEAVE. FORM SIGNED BY PHYSICIAN AND PATIENT.
--- NOTE | 2017-11-12 10:40 | NUR ---
FAXED CONCURRENT REVIEW TO [facility] [phone] PHONE [phone] Addendum: 11/12/17 at 1044 by Mary Ruth CM PATIENT LEFT AMA. ROXANNE RIOS FROM [facility]
--- NOTE | 2017-11-12 10:45 | NUR ---
REMOVED PATIENTS MARS CATHETER AT THIS TIME. REMOVED PATIENTS PICC LINE FROM RIGHT UPPER ARM. HELD PRESSURE FOR 5 MINUTES. PATIENT TOLERATED WELL. SITE IS CLEAN AND DRY.
--- NOTE | 2017-11-12 11:15 | NUR ---
PATIENTS [employer] IS HERE. WILL WHEEL PATIENT OUT. IN STABLE CONDITION AT THIS TIME. LEAVING AMA.
[2017-11-12] MEDS ORDERED: ZOLPIDEM 5 MG TAB PO SCH (21:00)
== END 2017-11-12 11:15 | disposition left against medical advice (07) | DRG 194 ==
LOC: MED 01:53 → MIC 05:38 → MTU 11-10 18:40
PROVIDERS: ADMIT Family Medicine; ATTEND Family Medicine
PROC: 02HV33Z Insertion of Infusion Device into Superior Vena Cava, Percutaneous Approach (ICD-10-PCS; principal; 2017-11-09)
DX: I11.0 Hypertensive heart disease with heart failure (principal); N17.0 Acute kidney failure with tubular necrosis; E43 Unspecified severe protein-calorie malnutrition; E11.51 Type 2 diabetes mellitus with diabetic peripheral angiopathy without gangrene; Z68.41 Body mass index [BMI] 40.0-44.9, adult; E11.65 Type 2 diabetes mellitus with hyperglycemia; I36.1 Nonrheumatic tricuspid (valve) insufficiency; D64.9 Anemia, unspecified; Z96.652 Presence of left artificial knee joint; F17.210 Nicotine dependence, cigarettes, uncomplicated; I42.8 Other cardiomyopathies; I50.43 Acute on chronic combined systolic (congestive) and diastolic (congestive) heart failure; R74.0 Nonspecific elevation of levels of transaminase and lactic acid dehydrogenase [LDH]; Z53.21 Procedure and treatment not carried out due to patient leaving prior to being seen by health care provider; E66.01 Morbid (severe) obesity due to excess calories; N48.89 Other specified disorders of penis; J44.9 Chronic obstructive pulmonary disease, unspecified; E02 Subclinical iodine-deficiency hypothyroidism; E78.5 Hyperlipidemia, unspecified; Z59.0 Homelessness; Z88.1 Allergy status to other antibiotic agents; Z88.2 Allergy status to sulfonamides; Z86.73 Personal history of transient ischemic attack (TIA), and cerebral infarction without residual deficits; Z86.19 Personal history of other infectious and parasitic diseases; Z86.59 Personal history of other mental and behavioral disorders; F14.10 Cocaine abuse, uncomplicated; F11.10 Opioid abuse, uncomplicated; F19.10 Other psychoactive substance abuse, uncomplicated
CPT/HCPCS: 36415; 51702; 71045; 74018; 76700; 80048; 80053; 80305; 81001; 82150; 82607; 82728; 82746; 82948; 83036; 83540; 83605; 83690; 83735; 83880; 84100; 84439; 84443; 84484; 85025; 85045; 85610; 85730; 87040; 87081; 87086; 93005; 93925; 93970; 97110; 97140; 99285; G0480; G0482; J1815; J1885; J1940; J2270; J2916; J3490; J7030; J7060; P9041; Q0092